=== PATIENT | female | born 1985 | race Caucasian/White ===

== ENCOUNTER 2023-06-22 00:43 | Inpatient (IN) | payer SELFPAY ==
[2023-06-22 01:42] VITALS: BMI 39.1
[2023-06-22] MEDS ORDERED: Acetaminophen 650 MG Suppository PR PRN (02:43)
[2023-06-22] MEDS ORDERED: Ondansetron PF 4 MG/2 ML Vial IVP PRN (02:43)
[2023-06-22] MEDS ORDERED: Ondansetron ODT 4 MG TAB PO PRN (02:43)
[2023-06-22] MEDS ORDERED: Fentanyl 100 MCG/2 ML VIAL SLOW IVP PRN (03:47)
[2023-06-22] MEDS ORDERED: Sodium Chloride 0.9% 1,000 ML IV SCH (04:00)
[2023-06-22] MEDS ORDERED: Morphine 4 MG/ML VIAL SLOW IVP SCH (04:00)
[2023-06-22] MEDS ORDERED: Pantoprazole 40 MG VIAL IVP SCH (04:15)
[2023-06-22] MEDS: Sodium Chloride 0.9% 1,000 ML IV SCH ×3 (04:19→18:39)
[2023-06-22 04:28] LABS: #Basophils 0.1 thou/uL (0.0-0.2); #Eosinphils 0.1 thou/uL (0.0-0.7); #Monocytes 1.4 thou/uL (0.11-0.59); #Neutrophils 13.1 thou/uL (1.40-6.50); %Basophils 0.4 % (0.0-1.0); %Eosinophils 0.4 % (0.0-10.0); %Lymphocytes 10.2 % (21.0-51.0); %Monocytes 8.1 % (0.0-10.0); %Neutrophils 78.9 % (42.0-75.0); Hematocrit 33.8 % (36.0-47.0); Mean Corpuscular HGB CONC 35.5 g/dL (32.0-36.0); Mean Platelet Volume 9.1 fL (7.4-10.4); Platelet Count 249 10x3/uL (130-400); RBC Distribution Width 16.7 % (11.5-14.5); Red Blood Cell (RBC) Count 3.16 mill/uL (4.20-5.40); White Blood Cell (WBC) Count 16.6 10x3/uL (4.8-10.8)
[2023-06-22 04:53] LABS: ALT (SGPT) 48 U/L (8-55); AST (SGOT) 151 U/L (5-34); Albumin 2.3 g/dL (3.5-5.0); Alkaline Phosphatase 194 U/L (40-110); Anion Gap 15 mmol/L (10-20); BUN (Urea Nitrogen) 5 mg/dL (7.0-18.7); Calc. Creatinine Clearance 290 mL/min (70-130); Calcium 8.2 mg/dL (7.8-10.44); Carbon Dioxide 24 mmol/L (22-29); Chloride 93 mmol/L (98-107); Estimated GFR 126; Globulin 4.6 g/dL (2.4-3.5); Glucose 114 mg/dL (70-105); Potassium 3.7 mmol/L (3.5-5.1); Protein, Total 6.9 g/dL (6.0-8.3); Sodium 128 mmol/L (136-145)
[2023-06-22] MEDS ORDERED: Electrolyte Replacement Protocol 1 EACH FS SCH (06:45)
[2023-06-22 08:21] LABS: INR-International Normal Ratio 1.5; PTT 39.6 sec (22.9-36.1); Prothrombin Time 19.1 sec (12.0-14.7)
[2023-06-22 08:29] LABS: Bilirubin, Total 23.1 mg/dL (0.2-1.2)
[2023-06-22] MEDS ORDERED: Magnesium 2 GM/50 ML(in water) 2 GM in Premix Bag 1 BAG IVPB SCH (08:45)
[2023-06-22 08:51] LABS: HBCM Index 0.16 S/CO (0-0.79); HBSAg Index 0.32 S/CO (0-0.99); Hep A IgM AB Non-Reactive S/CO (NonReactive); Hep A IgM S/CO 0.39 S/CO (0-0.79); Hep B Surf Ag Non-Reactive S/CO (NonReactive); Hep C IgG Ab Non-Reactive S/CO (NonReactive); Hep C Index 0.17 S/CO (0-0.79); Hepatitis B Core IgM Abs Non-Reactive S/CO (NonReactive)
[2023-06-22 08:52] LABS: Bilirubin, Direct 16.3 mg/dL (0.1-0.3)
[2023-06-22] MEDS: Carvedilol 6.25 MG TAB PO SCH ×2 (09:14→17:58)
[2023-06-22] MEDS ORDERED: fentaNYL 50 mcg/mL 1 mL Vial SLOW IVP PRN (09:30)
[2023-06-22] MEDS: fentaNYL 50 mcg/mL 1 mL Vial SLOW IVP PRN ×4 (09:42→22:18)
[2023-06-22] MEDS: Mometasone 100 MCG HFA INHALER (RT USE) INH SCH (18:45)
[2023-06-22] MEDS: Montelukast Sodium 10 mg Tablet PO SCH (21:25)
[2023-06-22] MEDS: Pantoprazole 40 MG VIAL IVP SCH (21:28)
[2023-06-23] MEDS: Sodium Chloride 0.9% 1,000 ML IV SCH ×3 (01:05→15:18)
[2023-06-23] MEDS: fentaNYL 50 mcg/mL 1 mL Vial SLOW IVP PRN ×4 (03:46→16:45)
[2023-06-23 06:52] LABS: #Basophils 0.1 thou/uL (0.0-0.2); #Eosinphils 0.1 thou/uL (0.0-0.7); #Neutrophils 10.5 thou/uL (1.40-6.50); %Basophils 0.5 % (0.0-1.0); %Eosinophils 0.8 % (0.0-10.0); %Lymphocytes 11.2 % (21.0-51.0); %Monocytes 7.2 % (0.0-10.0); %Neutrophils 79.2 % (42.0-75.0); Hematocrit 31.5 % (36.0-47.0); Hemoglobin 11.2 g/dL (12.0-16.0); Mean Corpuscular HGB CONC 35.6 g/dL (32.0-36.0); Mean Corpuscular Hemoglobin 38.6 pg (27.0-31.0); Mean Corpuscular Volume 108.6 fl (78.0-98.0); Mean Platelet Volume 9.6 fL (7.4-10.4); Platelet Count 208 10x3/uL (130-400); RBC Distribution Width 16.7 % (11.5-14.5); White Blood Cell (WBC) Count 13.3 10x3/uL (4.8-10.8)
[2023-06-23 07:01] LABS: INR-International Normal Ratio 1.7; Prothrombin Time 20.9 sec (12.0-14.7)
[2023-06-23 07:20] LABS: ALT (SGPT) 43 U/L (8-55); AST (SGOT) 130 U/L (5-34); Alkaline Phosphatase 174 U/L (40-110); Anion Gap 13 mmol/L (10-20); BUN (Urea Nitrogen) 6 mg/dL (7.0-18.7); Bilirubin, Total 22.2 mg/dL (0.2-1.2); Calc. Creatinine Clearance 253 mL/min (70-130); Calcium 7.4 mg/dL (7.8-10.44); Carbon Dioxide 23 mmol/L (22-29); Chloride 95 mmol/L (98-107); Estimated GFR 122; Globulin 3.5 g/dL (2.4-3.5); Glucose 87 mg/dL (70-105); Potassium 2.8 mmol/L (3.5-5.1); Protein, Total 5.5 g/dL (6.0-8.3); Sodium 128 mmol/L (136-145)
[2023-06-23] MEDS: Carvedilol 6.25 MG TAB PO SCH ×2 (08:38→16:46)
[2023-06-23] MEDS: prednisoLONE 10 MG ODT TAB PO SCH (08:39)
[2023-06-23] MEDS: Potassium Chloride 20 MEQ TAB PO SCH ×4 (08:39→22:42)
[2023-06-23] MEDS: Mometasone 100 MCG HFA INHALER (RT USE) INH SCH ×2 (10:05→18:29)
[2023-06-23] MEDS: Montelukast Sodium 10 mg Tablet PO SCH (22:42)
[2023-06-23] MEDS: Pantoprazole 40 MG VIAL IVP SCH (22:43)
[2023-06-23] MEDS: Polyethylene Glycol 3350 17 GM Packet PO SCH (22:45)
[2023-06-24] MEDS: Sodium Chloride 0.9% 1,000 ML IV SCH ×2 (00:35→08:39)
[2023-06-24] MEDS: prednisoLONE 10 MG ODT TAB PO SCH (08:39)
[2023-06-24] MEDS: Carvedilol 6.25 MG TAB PO SCH ×2 (08:39→16:40)
[2023-06-24] MEDS: Acetaminophen 325 MG TAB PO PRN (08:40)
[2023-06-24] MEDS: Polyethylene Glycol 3350 17 GM Packet PO SCH ×2 (08:46→22:45)
[2023-06-24] MEDS: Mometasone 100 MCG HFA INHALER (RT USE) INH SCH ×2 (10:30→18:59)
[2023-06-24 11:57] LABS: #Basophils 0.1 thou/uL (0.0-0.2); #Monocytes 0.9 thou/uL (0.11-0.59); #Neutrophils 13.3 thou/uL (1.40-6.50); %Basophils 0.3 % (0.0-1.0); %Eosinophils 0.2 % (0.0-10.0); %Lymphocytes 6.6 % (21.0-51.0); %Monocytes 5.7 % (0.0-10.0); %Neutrophils 85.3 % (42.0-75.0); Hematocrit 33.7 % (36.0-47.0); Hemoglobin 11.6 g/dL (12.0-16.0); Mean Corpuscular HGB CONC 34.4 g/dL (32.0-36.0); Mean Corpuscular Hemoglobin 37.9 pg (27.0-31.0); Mean Corpuscular Volume 110.1 fl (78.0-98.0); Mean Platelet Volume 9.3 fL (7.4-10.4); Platelet Count 252 10x3/uL (130-400); RBC Distribution Width 16.7 % (11.5-14.5); Red Blood Cell (RBC) Count 3.06 mill/uL (4.20-5.40); White Blood Cell (WBC) Count 15.6 10x3/uL (4.8-10.8)
[2023-06-24 12:09] LABS: INR-International Normal Ratio 1.8; Prothrombin Time 22.1 sec (12.0-14.7)
[2023-06-24 12:13] LABS: ALT (SGPT) 49 U/L (8-55); AST (SGOT) 126 U/L (5-34); Alkaline Phosphatase 185 U/L (40-110); Anion Gap 9 mmol/L (10-20); BUN (Urea Nitrogen) 7 mg/dL (7.0-18.7); Calc. Creatinine Clearance 214 mL/min (70-130); Calcium 7.9 mg/dL (7.8-10.44); Carbon Dioxide 23 mmol/L (22-29); Chloride 100 mmol/L (98-107); Estimated GFR 117; Globulin 3.8 g/dL (2.4-3.5); Glucose 125 mg/dL (70-105); Potassium 3.7 mmol/L (3.5-5.1); Protein, Total 5.8 g/dL (6.0-8.3); Sodium 128 mmol/L (136-145)
[2023-06-24] MEDS: Montelukast Sodium 10 mg Tablet PO SCH (23:38)
[2023-06-24] MEDS: Pantoprazole 40 MG VIAL IVP SCH (23:41)
[2023-06-25] MEDS: Sodium Chloride 0.9% 1,000 ML IV SCH ×2 (02:20→09:02)
[2023-06-25 06:23] LABS: #Basophils 0.1 thou/uL (0.0-0.2); #Eosinphils 0.1 thou/uL (0.0-0.7); #Monocytes 1.4 thou/uL (0.11-0.59); #Neutrophils 13.2 thou/uL (1.40-6.50); %Basophils 0.3 % (0.0-1.0); %Eosinophils 0.5 % (0.0-10.0); %Lymphocytes 9.9 % (21.0-51.0); %Monocytes 8.1 % (0.0-10.0); Hematocrit 32.9 % (36.0-47.0); Hemoglobin 11.3 g/dL (12.0-16.0); Mean Corpuscular HGB CONC 34.3 g/dL (32.0-36.0); Mean Corpuscular Hemoglobin 38.4 pg (27.0-31.0); Mean Corpuscular Volume 111.9 fl (78.0-98.0); Mean Platelet Volume 9.2 fL (7.4-10.4); Platelet Count 230 10x3/uL (130-400); RBC Distribution Width 17.1 % (11.5-14.5); Red Blood Cell (RBC) Count 2.94 mill/uL (4.20-5.40); White Blood Cell (WBC) Count 16.7 10x3/uL (4.8-10.8)
[2023-06-25] MEDS: Mometasone 100 MCG HFA INHALER (RT USE) INH SCH ×2 (06:40→18:32)
[2023-06-25 06:52] LABS: Anisocytosis SLIGHT = 6-15 cells HPF (0-5); Burr Cells SLIGHT = 2-5 cells HPF (0-1); CellaVision Operator ID lab.abc; Macrocytosis SLIGHT = 6-15 cells HPF (0-5); Platelet Adequacy Comment Platelets Normal; Polychromasia SLIGHT = 2-3 cells HPF (0-2)
[2023-06-25 07:17] LABS: ALT (SGPT) 50 U/L (8-55); AST (SGOT) 121 U/L (5-34); Alkaline Phosphatase 193 U/L (40-110); Anion Gap 13 mmol/L (10-20); BUN (Urea Nitrogen) 7 mg/dL (7.0-18.7); Bilirubin, Total 21.9 mg/dL (0.2-1.2); Calc. Creatinine Clearance 225 mL/min (70-130); Calcium 7.5 mg/dL (7.8-10.44); Carbon Dioxide 19 mmol/L (22-29); Chloride 102 mmol/L (98-107); Estimated GFR 118; Globulin 3.8 g/dL (2.4-3.5); Glucose 87 mg/dL (70-105); Magnesium 2.1 mg/dL (1.6-2.6); Potassium 4.1 mmol/L (3.5-5.1); Protein, Total 5.8 g/dL (6.0-8.3); Sodium 130 mmol/L (136-145)
[2023-06-25] MEDS: Carvedilol 6.25 MG TAB PO SCH ×2 (09:02→17:31)
[2023-06-25] MEDS: Acetaminophen 325 MG TAB PO PRN ×3 (09:04→16:51)
[2023-06-25] MEDS: prednisoLONE 10 MG ODT TAB PO SCH (09:05)
[2023-06-25] MEDS: Polyethylene Glycol 3350 17 GM Packet PO SCH (09:06)
[2023-06-25 14:24] LABS: INR-International Normal Ratio 1.8; Prothrombin Time 21.7 sec (12.0-14.7)
[2023-06-25] MEDS: HYDROcodone/Acetaminophen 5/325 mg Tablet PO PRN (17:32)
[2023-06-25] MEDS: Montelukast Sodium 10 mg Tablet PO SCH (20:34)
[2023-06-25] MEDS: Gabapentin 300 MG CAP PO SCH (20:34)
[2023-06-25] MEDS: Pantoprazole 40 MG VIAL IVP SCH (20:36)
[2023-06-26] MEDS: HYDROcodone/Acetaminophen 5/325 mg Tablet PO PRN ×3 (01:50→20:14)
[2023-06-26 05:48] LABS: #Basophils 0.1 thou/uL (0.0-0.2); #Monocytes 1.3 thou/uL (0.11-0.59); #Neutrophils 15.3 thou/uL (1.40-6.50); %Basophils 0.4 % (0.0-1.0); %Eosinophils 0.2 % (0.0-10.0); %Lymphocytes 8.1 % (21.0-51.0); Hematocrit 35.8 % (36.0-47.0); Hemoglobin 12.4 g/dL (12.0-16.0); Mean Corpuscular HGB CONC 34.6 g/dL (32.0-36.0); Mean Corpuscular Hemoglobin 38.5 pg (27.0-31.0); Mean Platelet Volume 9.1 fL (7.4-10.4); Platelet Count 255 10x3/uL (130-400); RBC Distribution Width 17.2 % (11.5-14.5); Red Blood Cell (RBC) Count 3.22 mill/uL (4.20-5.40); White Blood Cell (WBC) Count 18.9 10x3/uL (4.8-10.8)
[2023-06-26 05:51] LABS: Mean Corpuscular Volume 111.2 fl (78.0-98.0)
[2023-06-26 06:12] LABS: ALT (SGPT) 58 U/L (8-55); AST (SGOT) 125 U/L (5-34); Albumin 2.1 g/dL (3.5-5.0); Alkaline Phosphatase 216 U/L (40-110); Anion Gap 11 mmol/L (10-20); BUN (Urea Nitrogen) 10 mg/dL (7.0-18.7); Bilirubin, Total 23.6 mg/dL (0.2-1.2); Calc. Creatinine Clearance 205 mL/min (70-130); Carbon Dioxide 21 mmol/L (22-29); Chloride 100 mmol/L (98-107); Estimated GFR 116; Globulin 3.8 g/dL (2.4-3.5); Glucose 91 mg/dL (70-105); Magnesium 2.3 mg/dL (1.6-2.6); Potassium 4.4 mmol/L (3.5-5.1); Protein, Total 5.9 g/dL (6.0-8.3); Sodium 128 mmol/L (136-145)
[2023-06-26] MEDS: Acetaminophen 325 MG TAB PO PRN (06:26)
[2023-06-26] MEDS ORDERED: Furosemide 40 MG/4 ML VIAL SLOW IVP SCH (09:00)
[2023-06-26] MEDS: Gabapentin 300 MG CAP PO SCH ×3 (09:10→20:12)
[2023-06-26] MEDS: Polyethylene Glycol 3350 17 GM Packet PO SCH (09:10)
[2023-06-26] MEDS: Carvedilol 6.25 MG TAB PO SCH (09:12)
[2023-06-26] MEDS: prednisoLONE 10 MG ODT TAB PO SCH (09:13)
[2023-06-26] MEDS: Mometasone 100 MCG HFA INHALER (RT USE) INH SCH ×2 (10:39→18:21)
[2023-06-26] MEDS: Montelukast Sodium 10 mg Tablet PO SCH (20:12)
[2023-06-26] MEDS: Pantoprazole 40 MG VIAL IVP SCH (20:12)
[2023-06-26] MEDS: Carvedilol 3.125 MG TAB PO SCH (20:14)
[2023-06-27] MEDS: HYDROcodone/Acetaminophen 5/325 mg Tablet PO PRN ×3 (03:15→21:14)
[2023-06-27 06:05] LABS: #Basophils 0.1 thou/uL (0.0-0.2); #Monocytes 1.4 thou/uL (0.11-0.59); #Neutrophils 13.5 thou/uL (1.40-6.50); %Basophils 0.4 % (0.0-1.0); %Eosinophils 0.2 % (0.0-10.0); %Lymphocytes 8.9 % (21.0-51.0); %Monocytes 8.4 % (0.0-10.0); %Neutrophils 78.9 % (42.0-75.0); Hematocrit 32.6 % (36.0-47.0); Hemoglobin 11.4 g/dL (12.0-16.0); Mean Corpuscular Hemoglobin 38.8 pg (27.0-31.0); Mean Corpuscular Volume 110.9 fl (78.0-98.0); Mean Platelet Volume 9.2 fL (7.4-10.4); Platelet Count 212 10x3/uL (130-400); RBC Distribution Width 17.5 % (11.5-14.5); Red Blood Cell (RBC) Count 2.94 mill/uL (4.20-5.40); White Blood Cell (WBC) Count 17.1 10x3/uL (4.8-10.8)
[2023-06-27 06:25] LABS: INR-International Normal Ratio 1.9; Prothrombin Time 22.3 sec (12.0-14.7)
[2023-06-27 06:28] LABS: ALT (SGPT) 56 U/L (8-55); AST (SGOT) 119 U/L (5-34); Alkaline Phosphatase 228 U/L (40-110); Anion Gap 13 mmol/L (10-20); BUN (Urea Nitrogen) 14 mg/dL (7.0-18.7); Bilirubin, Total 21.8 mg/dL (0.2-1.2); Calc. Creatinine Clearance 176 mL/min (70-130); Calcium 7.9 mg/dL (7.8-10.44); Carbon Dioxide 21 mmol/L (22-29); Chloride 96 mmol/L (98-107); Estimated GFR 99; Globulin 3.7 g/dL (2.4-3.5); Glucose 90 mg/dL (70-105); Potassium 4.4 mmol/L (3.5-5.1); Protein, Total 5.7 g/dL (6.0-8.3); Sodium 126 mmol/L (136-145)
[2023-06-27] MEDS: Mometasone 100 MCG HFA INHALER (RT USE) INH SCH ×2 (06:36→18:42)
[2023-06-27] MEDS: Furosemide 40 MG TAB PO SCH (08:16)
[2023-06-27] MEDS: Gabapentin 300 MG CAP PO SCH ×3 (08:16→21:15)
[2023-06-27] MEDS: prednisoLONE 10 MG ODT TAB PO SCH (08:17)
[2023-06-27] MEDS: Polyethylene Glycol 3350 17 GM Packet PO SCH (08:17)
[2023-06-27] MEDS: Carvedilol 3.125 MG TAB PO SCH ×2 (08:17→16:37)
[2023-06-27] MEDS: Acetaminophen 325 MG TAB PO PRN (16:41)
[2023-06-27] MEDS: Montelukast Sodium 10 mg Tablet PO SCH (21:15)
[2023-06-27] MEDS: Pantoprazole 40 MG VIAL IVP SCH (21:16)
[2023-06-28] MEDS: Acetaminophen 325 MG TAB PO PRN ×2 (01:28→08:51)
[2023-06-28] MEDS: HYDROcodone/Acetaminophen 5/325 mg Tablet PO PRN ×2 (06:47→14:40)
[2023-06-28 07:42] LABS: ALT (SGPT) 59 U/L (8-55); AST (SGOT) 113 U/L (5-34); Albumin 1.9 g/dL (3.5-5.0); Alkaline Phosphatase 225 U/L (40-110); Anion Gap 12 mmol/L (10-20); BUN (Urea Nitrogen) 16 mg/dL (7.0-18.7); Bilirubin, Total 21.6 mg/dL (0.2-1.2); Calc. Creatinine Clearance 196 mL/min (70-130); Calcium 8.1 mg/dL (7.8-10.44); Carbon Dioxide 24 mmol/L (22-29); Chloride 96 mmol/L (98-107); Estimated GFR 113; Globulin 3.7 g/dL (2.4-3.5); Glucose 98 mg/dL (70-105); Potassium 4.5 mmol/L (3.5-5.1); Protein, Total 5.6 g/dL (6.0-8.3); Sodium 127 mmol/L (136-145)
[2023-06-28] MEDS: Gabapentin 300 MG CAP PO SCH ×3 (08:50→21:44)
[2023-06-28] MEDS: prednisoLONE 10 MG ODT TAB PO SCH (08:50)
[2023-06-28] MEDS: Polyethylene Glycol 3350 17 GM Packet PO SCH (08:51)
[2023-06-28] MEDS: Furosemide 40 MG TAB PO SCH (08:51)
[2023-06-28] MEDS: Carvedilol 3.125 MG TAB PO SCH ×2 (08:51→17:34)
[2023-06-28] MEDS: Albumin 25% 25 GM/100 ML BOT IVPB SCH ×2 (10:37→15:47)
[2023-06-28] MEDS: Mometasone 100 MCG HFA INHALER (RT USE) INH SCH ×2 (10:43→18:53)
[2023-06-28] MEDS ORDERED: Furosemide 20 MG/2 ML VIAL SLOW IVP SCH (14:00)
[2023-06-28] MEDS ORDERED: Furosemide 40 MG/4 ML VIAL SLOW IVP SCH (14:00)
[2023-06-28] MEDS: Montelukast Sodium 10 mg Tablet PO SCH (21:45)
[2023-06-28] MEDS: Pantoprazole 40 MG VIAL IVP SCH (21:46)
[2023-06-29] MEDS: Acetaminophen 325 MG TAB PO PRN (04:02)
[2023-06-29 07:25] LABS: ALT (SGPT) 52 U/L (8-55); AST (SGOT) 100 U/L (5-34); Albumin 2.3 g/dL (3.5-5.0); Alkaline Phosphatase 196 U/L (40-110); Anion Gap 10 mmol/L (10-20); BUN (Urea Nitrogen) 15 mg/dL (7.0-18.7); Bilirubin, Total 21.2 mg/dL (0.2-1.2); Calc. Creatinine Clearance 221 mL/min (70-130); Calcium 8.1 mg/dL (7.8-10.44); Carbon Dioxide 28 mmol/L (22-29); Chloride 97 mmol/L (98-107); Estimated GFR 118; Globulin 3.2 g/dL (2.4-3.5); Glucose 74 mg/dL (70-105); Potassium 3.7 mmol/L (3.5-5.1); Protein, Total 5.5 g/dL (6.0-8.3); Sodium 131 mmol/L (136-145)
[2023-06-29 08:08] VITALS: BP 117/79; TEMP 96.9
[2023-06-29] MEDS: HYDROcodone/Acetaminophen 5/325 mg Tablet PO PRN (08:33)
[2023-06-29] MEDS: Gabapentin 300 MG CAP PO SCH (08:34)
[2023-06-29] MEDS: Polyethylene Glycol 3350 17 GM Packet PO SCH (08:34)
[2023-06-29] MEDS: Carvedilol 3.125 MG TAB PO SCH (08:34)
[2023-06-29] MEDS: Furosemide 40 MG TAB PO SCH (08:34)
[2023-06-29] MEDS: prednisoLONE 10 MG ODT TAB PO SCH (08:34)
[2023-06-29] MEDS: Mometasone 100 MCG HFA INHALER (RT USE) INH SCH (08:45)
== END 2023-06-29 14:10 | disposition home or self-care (01) | DRG 432 ==
LOC: T4-A 01:26
PROVIDERS: ADMIT Student in an Organized Health Care Education/Training Program; ATTEND Family Medicine
PROC: 30233J1 Transfusion of Nonautologous Serum Albumin into Peripheral Vein, Percutaneous Approach (ICD-10-PCS; principal; 2023-06-28)
DX: K70.11 Alcoholic hepatitis with ascites (principal); K85.20 Alcohol induced acute pancreatitis without necrosis or infection; E87.1 Hypo-osmolality and hyponatremia; K76.6 Portal hypertension; I10 Essential (primary) hypertension; K21.9 Gastro-esophageal reflux disease without esophagitis; J45.909 Unspecified asthma, uncomplicated; E87.6 Hypokalemia; R79.89 Other specified abnormal findings of blood chemistry; E66.9 Obesity, unspecified; I49.3 Ventricular premature depolarization; K72.90 Hepatic failure, unspecified without coma; Z91.013 Allergy to seafood; Z91.09 Other allergy status, other than to drugs and biological substances; Z79.51 Long term (current) use of inhaled steroids; Z79.899 Other long term (current) drug therapy; Z86.711 Personal history of pulmonary embolism; Z90.49 Acquired absence of other specified parts of digestive tract; Z98.51 Tubal ligation status; Z68.39 Body mass index [BMI] 39.0-39.9, adult
CPT/HCPCS: 36415; 36416; 76705; 80053; 80074; 82247; 83735; 85025; 85610; 85730; 94664; C9113; J1650; J1940; J2270; J2405; J3010; J3475; J7050; P9047

== ENCOUNTER 2023-07-03 08:34 | Inpatient (IN) | payer MEDICAID, SELFPAY ==
[2023-07-03 09:22] LABS: #Basophils 0.1 thou/uL (0.0-0.2); #Eosinphils 0.1 thou/uL (0.0-0.7); #Monocytes 1.7 thou/uL (0.11-0.59); #Neutrophils 20.3 thou/uL (1.40-6.50); %Basophils 0.6 % (0.0-1.0); %Eosinophils 0.3 % (0.0-10.0); %Lymphocytes 5.8 % (21.0-51.0); %Neutrophils 83.1 % (42.0-75.0); Hematocrit 33.3 % (36.0-47.0); Hemoglobin 11.9 g/dL (12.0-16.0); Mean Corpuscular HGB CONC 35.7 g/dL (32.0-36.0); Mean Corpuscular Hemoglobin 39.8 pg (27.0-31.0); Mean Corpuscular Volume 111.4 fl (78.0-98.0); Mean Platelet Volume 9.4 fL (7.4-10.4); Platelet Count 184 10x3/uL (130-400); RBC Distribution Width 18.9 % (11.5-14.5); Red Blood Cell (RBC) Count 2.99 mill/uL (4.20-5.40); White Blood Cell (WBC) Count 24.4 10x3/uL (4.8-10.8)
[2023-07-03 09:45] LABS: ALT (SGPT) 75 U/L (8-55); AST (SGOT) 145 U/L (5-34); Albumin 2.4 g/dL (3.5-5.0); Alkaline Phosphatase 242 U/L (40-110); Anion Gap 10 mmol/L (10-20); BUN (Urea Nitrogen) 19 mg/dL (7.0-18.7); Bilirubin, Total 22.3 mg/dL (0.2-1.2); Calc. Creatinine Clearance 0 mL/min (70-130); Calcium 8.4 mg/dL (7.8-10.44); Carbon Dioxide 21 mmol/L (22-29); Chloride 100 mmol/L (98-107); Estimated GFR 106; Globulin 3.3 g/dL (2.4-3.5); Glucose 134 mg/dL (70-105); Lipase 51 U/L (8-78); Potassium 4.7 mmol/L (3.5-5.1); Protein, Total 5.7 g/dL (6.0-8.3); Sodium 126 mmol/L (136-145)
[2023-07-03 09:47] LABS: Troponin I Less than 0.010 ng/mL (< 0.028)
[2023-07-03 09:48] LABS: CellaVision Operator ID LAB.GE; Platelet Adequacy Comment Platelets Normal; Polychromasia SLIGHT = 2-3 cells HPF (0-2)
[2023-07-03] MEDS ORDERED: Morphine 4 MG/ML VIAL ONE (10:02)
[2023-07-03] MEDS ORDERED: Ondansetron PF 4 MG/2 ML Vial ONE (10:03)
[2023-07-03 10:14] LABS: BHCG - Serum Negative (NEGATIVE); Pregs Control Background? CLEAR/WHITE (CLR/WHITE); Pregs Control Bar Appear? YES (CONTROL BAR)
[2023-07-03] MEDS ORDERED: Vancomycin 1 GM/200 ML (FROZEN) BAG ONE (10:14)
[2023-07-03] MEDS ORDERED: Piperacillin/Tazobactam 4.5 GM VIAL ONE (10:15)
[2023-07-03 10:29] LABS: INR-International Normal Ratio 1.7; Prothrombin Time 20.8 sec (12.0-14.7)
[2023-07-03 10:30] LABS: PTT 38.7 sec (22.9-36.1)
[2023-07-03] MEDS ORDERED: Iopamidol-370 76% 500 ML MDV (1 ML CHARGE) ONE (11:04)
[2023-07-03] MEDS ORDERED: Ondansetron PF 4 MG/2 ML Vial IVP PRN (12:46)
[2023-07-03 14:36] LABS: Bacteria/HPF 4+ HPF (None Seen); Bilirubin 4+ (Negative); Blood, Urine Negative (Negative); CAUTI Indications for Culture Pelvic or flank pain; Clarity Turbid (Clear); Glucose, Urine (Dipstick) Normal (Negative); Ketone, Urine Negative (Negative); Leukocyte Negative Leu/uL (Negative); Nitrite 2+ (Negative); Protein, Urine (Dipstick) 10 mg/dL (Neg-Trace); RBC/HPF 0-3 HPF (0-3); Specific Gravity, Urine 1.048 (1.002-1.036); Squamous Epithelial 0-3 HPF (0-3)
[2023-07-03] MEDS: Piperacillin/Tazobactam 3.375 GM in Sodium Chloride 0.9% 100 ML IVPB SCH ×2 (14:48→20:58)
[2023-07-03 14:55] LABS: Urine Culture Reflex No No
[2023-07-03 15:58] LABS: Amphetamine Not Detected (NotDetected); Barbiturates Screen Not Detected (NotDetected); Benzodiazepine Screen Not Detected (NotDetected); Cocaine Metabolite Screen Not Detected (NotDetected); Methadone Not Detected (NotDetected); Methamphetamine Not Detected (NotDetected); Opiate Screen Detected (NotDetected); Oxycodone Screen Not Detected (NotDetected); Phencyclidine (PCP) Not Detected (NotDetected); THC/Cannabinoid Screen Detected (NotDetected); Tricyclic Screen Not Detected (NotDetected)
[2023-07-03] MEDS: Morphine 2 MG/ML VIAL SLOW IVP PRN ×2 (16:20→20:53)
[2023-07-03] MEDS ORDERED: Albuterol 200 PUFF (6.7GM INHALER) INH PRN (17:00)
[2023-07-03] MEDS ORDERED: Piperacillin/Tazobactam 4.5 GM in Sodium Chloride 0.9% 100 ML IVPB SCH (18:00)
[2023-07-03] MEDS: Gabapentin 300 MG CAP PO SCH (20:54)
[2023-07-04] MEDS: Morphine 2 MG/ML VIAL SLOW IVP PRN ×3 (00:40→11:49)
[2023-07-04] MEDS: Piperacillin/Tazobactam 3.375 GM in Sodium Chloride 0.9% 100 ML IVPB SCH ×3 (04:56→21:00)
[2023-07-04 07:23] LABS: Hematocrit 31.3 % (36.0-47.0); Hemoglobin 10.7 g/dL (12.0-16.0); Mean Corpuscular HGB CONC 34.2 g/dL (32.0-36.0); Mean Corpuscular Hemoglobin 39.6 pg (27.0-31.0); Mean Platelet Volume 9.4 fL (7.4-10.4); Platelet Count 159 10x3/uL (130-400); RBC Distribution Width 18.8 % (11.5-14.5); White Blood Cell (WBC) Count 21.2 10x3/uL (4.8-10.8)
[2023-07-04 07:39] LABS: Delete Auto Diff?? YES; Manual Diff?? YES; Mean Corpuscular Volume 115.9 fl (78.0-98.0)
[2023-07-04 07:45] LABS: ALT (SGPT) 68 U/L (8-55); AST (SGOT) 127 U/L (5-34); Albumin 2.1 g/dL (3.5-5.0); Alkaline Phosphatase 208 U/L (40-110); Anion Gap 13 mmol/L (10-20); BUN (Urea Nitrogen) 22 mg/dL (7.0-18.7); Bilirubin, Total 18.9 mg/dL (0.2-1.2); Calc. Creatinine Clearance 262 mL/min (70-130); Calcium 7.9 mg/dL (7.8-10.44); Carbon Dioxide 20 mmol/L (22-29); Chloride 100 mmol/L (98-107); Estimated GFR 117; Glucose 102 mg/dL (70-105); Potassium 4.5 mmol/L (3.5-5.1); Protein, Total 5.1 g/dL (6.0-8.3); Sodium 128 mmol/L (136-145)
[2023-07-04 07:47] LABS: INR-International Normal Ratio 1.6
[2023-07-04 07:55] LABS: Hemoglobin A1c 4.2 % (4.0-6.0)
[2023-07-04 08:23] LABS: Band 26 % (5-11); CellaVision Operator ID LAB.GE; Lymphocytes 4 % (21-51); Macrocytosis MODERATE=16-30 cells HPF (0-5); Monocytes 10 % (0-10); Neutrophil 61 % (42-75); Platelet Adequacy Comment Platelets Normal; Polychromasia SLIGHT = 2-3 cells HPF (0-2); Total Cell Count 102
[2023-07-04] MEDS ORDERED: Lidocaine 1% PF 5 ML VIAL ONE (10:20)
[2023-07-04] MEDS: Gabapentin 300 MG CAP PO SCH ×3 (11:47→20:58)
[2023-07-04] MEDS: Furosemide 40 MG/4 ML VIAL SLOW IVP SCH (11:47)
[2023-07-04] MEDS: prednisoLONE 10 MG ODT TAB PO SCH (11:48)
[2023-07-04 13:24] LABS: RBC Count-Automated (BF) 138 /cu.mm; WBC/Nucleated-Auto (BF) 53 /cu.mm
[2023-07-04 13:27] LABS: BF Color Yellow; Body Fluid Source Ascites Body Fluid; Clarity Clear (Clear); Tube # EDTA
[2023-07-04 13:58] LABS: BF Segmented Neutrophils 5 %; Cell Count Non Hematic 86 %; Lymphocytes 9 %
[2023-07-04] MEDS ORDERED: Cyclobenzaprine 10 MG TAB PO SCH (16:30)
[2023-07-04] MEDS ORDERED: Senokot S 8.6-50 MG TAB PO SCH (17:00)
[2023-07-04] MEDS: HYDROcodone/Acetaminophen 5/325 mg Tablet PO PRN (17:25)
[2023-07-04] MEDS: Carvedilol 6.25 MG TAB PO SCH (20:57)
[2023-07-04] MEDS: Montelukast Sodium 10 mg Tablet PO SCH (20:58)
[2023-07-04] MEDS: Cyclobenzaprine 10 MG TAB PO PRN (20:58)
[2023-07-05] MEDS: HYDROcodone/Acetaminophen 5/325 mg Tablet PO PRN ×4 (00:33→18:53)
[2023-07-05 05:30] LABS: #Eosinphils 0.1 thou/uL (0.0-0.7); #Monocytes 1.6 thou/uL (0.11-0.59); #Neutrophils 15.4 thou/uL (1.40-6.50); %Basophils 0.2 % (0.0-1.0); %Eosinophils 0.3 % (0.0-10.0); %Lymphocytes 7.2 % (21.0-51.0); %Monocytes 8.6 % (0.0-10.0); %Neutrophils 81.5 % (42.0-75.0); Hematocrit 29.7 % (36.0-47.0); Hemoglobin 10.4 g/dL (12.0-16.0); Mean Corpuscular Hemoglobin 39.5 pg (27.0-31.0); Mean Platelet Volume 9.5 fL (7.4-10.4); Platelet Count 146 10x3/uL (130-400); RBC Distribution Width 18.6 % (11.5-14.5); Red Blood Cell (RBC) Count 2.63 mill/uL (4.20-5.40); White Blood Cell (WBC) Count 18.8 10x3/uL (4.8-10.8)
[2023-07-05 05:34] LABS: Mean Corpuscular Volume 112.9 fl (78.0-98.0)
[2023-07-05 05:56] LABS: ALT (SGPT) 64 U/L (8-55); AST (SGOT) 115 U/L (5-34); Albumin 1.9 g/dL (3.5-5.0); Alkaline Phosphatase 229 U/L (40-110); Anion Gap 12 mmol/L (10-20); BUN (Urea Nitrogen) 23 mg/dL (7.0-18.7); Bilirubin, Total 17.6 mg/dL (0.2-1.2); Calc. Creatinine Clearance 255 mL/min (70-130); Carbon Dioxide 22 mmol/L (22-29); Chloride 97 mmol/L (98-107); Estimated GFR 116; Glucose 103 mg/dL (70-105); Potassium 4.6 mmol/L (3.5-5.1); Protein, Total 4.9 g/dL (6.0-8.3); Sodium 126 mmol/L (136-145)
[2023-07-05] MEDS: Piperacillin/Tazobactam 3.375 GM in Sodium Chloride 0.9% 100 ML IVPB SCH ×3 (06:08→22:04)
[2023-07-05] MEDS: Carvedilol 6.25 MG TAB PO SCH ×2 (10:10→20:28)
[2023-07-05] MEDS: Gabapentin 300 MG CAP PO SCH ×3 (10:11→20:29)
[2023-07-05] MEDS: Senokot S 8.6-50 MG TAB PO SCH ×2 (10:11→20:29)
[2023-07-05] MEDS: Furosemide 40 MG/4 ML VIAL SLOW IVP SCH (10:11)
[2023-07-05] MEDS: prednisoLONE 10 MG ODT TAB PO SCH (10:12)
[2023-07-05] MEDS: Cyclobenzaprine 10 MG TAB PO PRN (10:26)
[2023-07-05 11:11] VITALS: BMI 48.6
[2023-07-05] MEDS: Montelukast Sodium 10 mg Tablet PO SCH (20:29)
[2023-07-06] MEDS: Albumin 25% 25 GM/100 ML BOT IVPB SCH ×4 (01:09→18:11)
[2023-07-06] MEDS: HYDROcodone/Acetaminophen 5/325 mg Tablet PO PRN ×4 (01:09→21:43)
[2023-07-06 04:03] LABS: #Monocytes 1.2 thou/uL (0.11-0.59); #Neutrophils 13.7 thou/uL (1.40-6.50); %Basophils 0.2 % (0.0-1.0); %Eosinophils 0.1 % (0.0-10.0); %Lymphocytes 8.1 % (21.0-51.0); %Monocytes 7.3 % (0.0-10.0); %Neutrophils 82.6 % (42.0-75.0); Hematocrit 29.1 % (36.0-47.0); Hemoglobin 10.2 g/dL (12.0-16.0); Mean Corpuscular HGB CONC 35.1 g/dL (32.0-36.0); Mean Corpuscular Hemoglobin 39.8 pg (27.0-31.0); Mean Corpuscular Volume 113.7 fl (78.0-98.0); Mean Platelet Volume 9.9 fL (7.4-10.4); Platelet Count 136 10x3/uL (130-400); RBC Distribution Width 18.8 % (11.5-14.5); Red Blood Cell (RBC) Count 2.56 mill/uL (4.20-5.40); White Blood Cell (WBC) Count 16.6 10x3/uL (4.8-10.8)
[2023-07-06 04:41] LABS: ALT (SGPT) 63 U/L (8-55); AST (SGOT) 114 U/L (5-34); Albumin 2.2 g/dL (3.5-5.0); Alkaline Phosphatase 234 U/L (40-110); Anion Gap 12 mmol/L (10-20); BUN (Urea Nitrogen) 28 mg/dL (7.0-18.7); Bilirubin, Total 15.3 mg/dL (0.2-1.2); Calc. Creatinine Clearance 244 mL/min (70-130); Calcium 8.2 mg/dL (7.8-10.44); Carbon Dioxide 22 mmol/L (22-29); Chloride 97 mmol/L (98-107); Estimated GFR 113; Globulin 2.9 g/dL (2.4-3.5); Glucose 99 mg/dL (70-105); Magnesium 2.1 mg/dL (1.6-2.6); Potassium 4.6 mmol/L (3.5-5.1); Protein, Total 5.1 g/dL (6.0-8.3); Sodium 126 mmol/L (136-145)
[2023-07-06] MEDS: Piperacillin/Tazobactam 3.375 GM in Sodium Chloride 0.9% 100 ML IVPB SCH (06:28)
[2023-07-06] MEDS: Gabapentin 300 MG CAP PO SCH ×3 (08:32→21:47)
[2023-07-06] MEDS: Furosemide 40 MG/4 ML VIAL SLOW IVP SCH ×2 (08:32→10:09)
[2023-07-06] MEDS: Carvedilol 6.25 MG TAB PO SCH ×3 (08:32→21:43)
[2023-07-06] MEDS: Senokot S 8.6-50 MG TAB PO SCH ×2 (08:33→21:47)
[2023-07-06] MEDS: prednisoLONE 10 MG ODT TAB PO SCH (10:07)
[2023-07-06] MEDS ORDERED: Spironolactone 100 MG TAB PO SCH (12:00)
[2023-07-06] MEDS: Montelukast Sodium 10 mg Tablet PO SCH (21:48)
[2023-07-07] MEDS: Cyclobenzaprine 10 MG TAB PO PRN (02:17)
[2023-07-07 06:25] LABS: #Monocytes 1.6 thou/uL (0.11-0.59); #Neutrophils 14.4 thou/uL (1.40-6.50); %Basophils 0.2 % (0.0-1.0); %Eosinophils 0.2 % (0.0-10.0); %Lymphocytes 8.9 % (21.0-51.0); %Monocytes 9.1 % (0.0-10.0); %Neutrophils 80.3 % (42.0-75.0); Mean Corpuscular HGB CONC 34.5 g/dL (32.0-36.0); Mean Corpuscular Hemoglobin 39.5 pg (27.0-31.0); Mean Corpuscular Volume 114.6 fl (78.0-98.0); Mean Platelet Volume 9.9 fL (7.4-10.4); Platelet Count 150 10x3/uL (130-400); RBC Distribution Width 19.1 % (11.5-14.5); Red Blood Cell (RBC) Count 2.53 mill/uL (4.20-5.40)
[2023-07-07] MEDS: HYDROcodone/Acetaminophen 5/325 mg Tablet PO PRN ×2 (06:53→21:23)
[2023-07-07 06:54] LABS: ALT (SGPT) 63 U/L (8-55); AST (SGOT) 111 U/L (5-34); Albumin 2.8 g/dL (3.5-5.0); Alkaline Phosphatase 221 U/L (40-110); Anion Gap 12 mmol/L (10-20); BUN (Urea Nitrogen) 23 mg/dL (7.0-18.7); Bilirubin, Total 13.8 mg/dL (0.2-1.2); Calc. Creatinine Clearance 275 mL/min (70-130); Calcium 8.6 mg/dL (7.8-10.44); Carbon Dioxide 21 mmol/L (22-29); Chloride 102 mmol/L (98-107); Delete Auto Diff?? NO; Estimated GFR 118; Globulin 2.7 g/dL (2.4-3.5); Glucose 93 mg/dL (70-105); Potassium 4.7 mmol/L (3.5-5.1); Protein, Total 5.5 g/dL (6.0-8.3); Sodium 130 mmol/L (136-145)
[2023-07-07] MEDS: Gabapentin 300 MG CAP PO SCH ×3 (09:53→21:24)
[2023-07-07] MEDS: Carvedilol 6.25 MG TAB PO SCH ×2 (09:53→21:24)
[2023-07-07] MEDS: Spironolactone 100 MG TAB PO SCH (09:53)
[2023-07-07] MEDS: Furosemide 40 MG TAB PO SCH (09:53)
[2023-07-07] MEDS: prednisoLONE 10 MG ODT TAB PO SCH (09:54)
[2023-07-07] MEDS: Senokot S 8.6-50 MG TAB PO SCH ×2 (09:54→21:25)
[2023-07-07 12:25] LABS: Anisocytosis SLIGHT = 6-15 cells (100X) (0-5/hpf); Macrocytosis MODERATE=16-30 cells (100X) (0-5/hpf); Platelet Adequacy Comment Platelets Normal; Polychromasia SLIGHT = 2-3 cells (100X) (0-2/hpf); RBC Morph Comment Within Normal Limits; Target Cells SLIGHT = 2-5 cells (100X) (0-1/hpf)
[2023-07-07] MEDS: Morphine 2 MG/ML VIAL SLOW IVP PRN (17:24)
[2023-07-07] MEDS: Montelukast Sodium 10 mg Tablet PO SCH (21:23)
[2023-07-08] MEDS: Cyclobenzaprine 10 MG TAB PO PRN (00:43)
[2023-07-08] MEDS: HYDROcodone/Acetaminophen 5/325 mg Tablet PO PRN ×4 (02:47→22:19)
[2023-07-08] MEDS: Carvedilol 6.25 MG TAB PO SCH ×2 (08:19→20:05)
[2023-07-08] MEDS: Gabapentin 300 MG CAP PO SCH ×3 (08:19→20:04)
[2023-07-08] MEDS: Spironolactone 100 MG TAB PO SCH (08:20)
[2023-07-08] MEDS: Senokot S 8.6-50 MG TAB PO SCH ×2 (08:20→20:05)
[2023-07-08] MEDS: Furosemide 40 MG TAB PO SCH (08:20)
[2023-07-08] MEDS: prednisoLONE 10 MG ODT TAB PO SCH (08:20)
[2023-07-08 10:08] LABS: #Eosinphils 0.1 thou/uL (0.0-0.7); #Monocytes 1.1 thou/uL (0.11-0.59); #Neutrophils 12.4 thou/uL (1.40-6.50); %Basophils 0.3 % (0.0-1.0); %Eosinophils 0.5 % (0.0-10.0); %Monocytes 7.3 % (0.0-10.0); %Neutrophils 79.7 % (42.0-75.0); Hematocrit 29.2 % (36.0-47.0); Hemoglobin 10.1 g/dL (12.0-16.0); Mean Corpuscular HGB CONC 34.6 g/dL (32.0-36.0); Mean Corpuscular Hemoglobin 40.6 pg (27.0-31.0); Mean Corpuscular Volume 117.3 fl (78.0-98.0); Mean Platelet Volume 9.8 fL (7.4-10.4); Platelet Count 132 10x3/uL (130-400); RBC Distribution Width 19.2 % (11.5-14.5); Red Blood Cell (RBC) Count 2.49 mill/uL (4.20-5.40); White Blood Cell (WBC) Count 15.5 10x3/uL (4.8-10.8)
[2023-07-08 10:38] LABS: ALT (SGPT) 67 U/L (8-55); AST (SGOT) 131 U/L (5-34); Albumin 2.4 g/dL (3.5-5.0); Alkaline Phosphatase 233 U/L (40-110); Anion Gap 10 mmol/L (10-20); BUN (Urea Nitrogen) 21 mg/dL (7.0-18.7); Bilirubin, Total 11.7 mg/dL (0.2-1.2); Calc. Creatinine Clearance 262 mL/min (70-130); Calcium 8.4 mg/dL (7.8-10.44); Carbon Dioxide 25 mmol/L (22-29); Chloride 100 mmol/L (98-107); Estimated GFR 117; Globulin 2.6 g/dL (2.4-3.5); Glucose 107 mg/dL (70-105); Magnesium 1.8 mg/dL (1.6-2.6); Potassium 4.2 mmol/L (3.5-5.1); Sodium 131 mmol/L (136-145)
[2023-07-08 11:17] LABS: Anisocytosis SLIGHT = 6-15 cells (100X) (0-5/hpf); Hypochromia SLIGHT = 6-15 cells (100X) (0-5/hpf); Macrocytosis MODERATE=16-30 cells (100X) (0-5/hpf)
[2023-07-08 11:18] LABS: Platelet Adequacy Comment Appears Adequate
[2023-07-08] MEDS: Morphine 2 MG/ML VIAL SLOW IVP PRN ×2 (12:36→20:05)
[2023-07-08] MEDS ORDERED: Witch Hazel-Glycerin 1 EACH JAR TOP PRN (15:27)
[2023-07-08] MEDS ORDERED: Furosemide 40 MG/4 ML VIAL SLOW IVP SCH (15:30)
[2023-07-08] MEDS: Mometasone/Formoterol 200/5 60 PUFF INH SCH (18:18)
[2023-07-08] MEDS: Montelukast Sodium 10 mg Tablet PO SCH (20:05)
[2023-07-09] MEDS: Cyclobenzaprine 10 MG TAB PO PRN ×3 (00:18→18:04)
[2023-07-09] MEDS: Morphine 2 MG/ML VIAL SLOW IVP PRN ×6 (00:20→22:23)
[2023-07-09 04:48] LABS: #Eosinphils 0.1 thou/uL (0.0-0.7); #Monocytes 1.2 thou/uL (0.11-0.59); #Neutrophils 13.4 thou/uL (1.40-6.50); %Basophils 0.2 % (0.0-1.0); %Eosinophils 0.4 % (0.0-10.0); %Lymphocytes 9.6 % (21.0-51.0); %Monocytes 7.5 % (0.0-10.0); %Neutrophils 81.1 % (42.0-75.0); Hematocrit 29.1 % (36.0-47.0); Mean Corpuscular HGB CONC 34.4 g/dL (32.0-36.0); Mean Corpuscular Hemoglobin 40.3 pg (27.0-31.0); Mean Corpuscular Volume 117.3 fl (78.0-98.0); Mean Platelet Volume 9.9 fL (7.4-10.4); Platelet Count 137 10x3/uL (130-400); RBC Distribution Width 19.3 % (11.5-14.5); Red Blood Cell (RBC) Count 2.48 mill/uL (4.20-5.40); White Blood Cell (WBC) Count 16.5 10x3/uL (4.8-10.8)
[2023-07-09 05:06] LABS: ALT (SGPT) 71 U/L (8-55); AST (SGOT) 120 U/L (5-34); Albumin 2.5 g/dL (3.5-5.0); Alkaline Phosphatase 236 U/L (40-110); Anion Gap 7 mmol/L (10-20); BUN (Urea Nitrogen) 21 mg/dL (7.0-18.7); Bilirubin, Total 10.5 mg/dL (0.2-1.2); Calc. Creatinine Clearance 255 mL/min (70-130); Calcium 8.6 mg/dL (7.8-10.44); Carbon Dioxide 29 mmol/L (22-29); Chloride 100 mmol/L (98-107); Estimated GFR 116; Globulin 2.6 g/dL (2.4-3.5); Glucose 93 mg/dL (70-105); Magnesium 1.9 mg/dL (1.6-2.6); Potassium 4.3 mmol/L (3.5-5.1); Protein, Total 5.1 g/dL (6.0-8.3); Sodium 132 mmol/L (136-145)
[2023-07-09 05:11] LABS: Delete Auto Diff?? NO
[2023-07-09] MEDS: Furosemide 40 MG/4 ML VIAL SLOW IVP SCH ×2 (05:26→14:35)
[2023-07-09] MEDS: HYDROcodone/Acetaminophen 5/325 mg Tablet PO PRN ×3 (05:29→20:18)
[2023-07-09] MEDS: Mometasone/Formoterol 200/5 60 PUFF INH SCH ×2 (08:00→18:18)
[2023-07-09] MEDS: prednisoLONE 10 MG ODT TAB PO SCH (10:32)
[2023-07-09] MEDS: Gabapentin 300 MG CAP PO SCH ×3 (10:33→20:17)
[2023-07-09] MEDS: Carvedilol 6.25 MG TAB PO SCH ×2 (10:33→20:17)
[2023-07-09] MEDS: Spironolactone 100 MG TAB PO SCH (10:34)
[2023-07-09] MEDS: Senokot S 8.6-50 MG TAB PO SCH ×2 (10:34→20:17)
[2023-07-09] MEDS: Montelukast Sodium 10 mg Tablet PO SCH (20:17)
[2023-07-10] MEDS: Morphine 2 MG/ML VIAL SLOW IVP PRN ×5 (02:40→22:12)
[2023-07-10] MEDS: HYDROcodone/Acetaminophen 5/325 mg Tablet PO PRN ×3 (05:02→20:24)
[2023-07-10] MEDS: Furosemide 40 MG/4 ML VIAL SLOW IVP SCH ×2 (05:02→13:50)
[2023-07-10 05:07] LABS: #Eosinphils 0.1 thou/uL (0.0-0.7); #Monocytes 1.4 thou/uL (0.11-0.59); #Neutrophils 14.1 thou/uL (1.40-6.50); %Basophils 0.2 % (0.0-1.0); %Eosinophils 0.3 % (0.0-10.0); %Lymphocytes 7.9 % (21.0-51.0); %Neutrophils 82.1 % (42.0-75.0); Hematocrit 28.1 % (36.0-47.0); Hemoglobin 9.6 g/dL (12.0-16.0); Mean Corpuscular HGB CONC 34.2 g/dL (32.0-36.0); Mean Corpuscular Hemoglobin 40.3 pg (27.0-31.0); Mean Corpuscular Volume 118.1 fl (78.0-98.0); Mean Platelet Volume 10.1 fL (7.4-10.4); Platelet Count 123 10x3/uL (130-400); RBC Distribution Width 18.9 % (11.5-14.5); Red Blood Cell (RBC) Count 2.38 mill/uL (4.20-5.40); White Blood Cell (WBC) Count 17.2 10x3/uL (4.8-10.8)
[2023-07-10 05:53] LABS: Anisocytosis SLIGHT = 6-15 cells HPF (0-5); Burr Cells SLIGHT = 2-5 cells HPF (0-1); CellaVision Operator ID lab.abc; Macrocytosis MODERATE=16-30 cells HPF (0-5); Platelet Adequacy Comment Platelets Normal
[2023-07-10 06:30] LABS: ALT (SGPT) 77 U/L (8-55); AST (SGOT) 127 U/L (5-34); Albumin 2.5 g/dL (3.5-5.0); Alkaline Phosphatase 237 U/L (40-110); Anion Gap 10 mmol/L (10-20); BUN (Urea Nitrogen) 23 mg/dL (7.0-18.7); Bilirubin, Total 10.6 mg/dL (0.2-1.2); Calc. Creatinine Clearance 251 mL/min (70-130); Calcium 8.4 mg/dL (7.8-10.44); Carbon Dioxide 27 mmol/L (22-29); Cardiac Risk TEST NOT PERFORMED (Less than 4.5); Chloride 96 mmol/L (98-107); Cholesterol 136 mg/dl (< 200 Desired); Estimated GFR 115; Globulin 2.6 g/dL (2.4-3.5); Glucose 113 mg/dL (70-105); HDL Cholesterol Less than 8 mg/dL (>60 Neg Risk); Magnesium 1.9 mg/dL (1.6-2.6); Potassium 4.4 mmol/L (3.5-5.1); Protein, Total 5.1 g/dL (6.0-8.3); Sodium 129 mmol/L (136-145); Triglycerides 134 mg/dL (Less than 150)
[2023-07-10] MEDS: Mometasone/Formoterol 200/5 60 PUFF INH SCH ×2 (07:19→19:33)
[2023-07-10] MEDS: Multivit, Therapeutic 1 TAB PO SCH (08:24)
[2023-07-10] MEDS: Carvedilol 6.25 MG TAB PO SCH ×2 (08:24→20:24)
[2023-07-10] MEDS: Senokot S 8.6-50 MG TAB PO SCH ×2 (08:25→20:24)
[2023-07-10] MEDS: Gabapentin 300 MG CAP PO SCH ×3 (08:25→20:30)
[2023-07-10] MEDS: prednisoLONE 10 MG ODT TAB PO SCH (08:25)
[2023-07-10] MEDS: Spironolactone 100 MG TAB PO SCH (08:25)
[2023-07-10] MEDS: Cyclobenzaprine 10 MG TAB PO PRN ×2 (08:29→16:52)
[2023-07-10] MEDS: Montelukast Sodium 10 mg Tablet PO SCH (20:24)
[2023-07-11] MEDS: Morphine 2 MG/ML VIAL SLOW IVP PRN ×4 (02:48→20:32)
[2023-07-11] MEDS: HYDROcodone/Acetaminophen 5/325 mg Tablet PO PRN ×2 (04:31→11:37)
[2023-07-11] MEDS: Furosemide 40 MG/4 ML VIAL SLOW IVP SCH ×2 (06:01→14:08)
[2023-07-11] MEDS: Cyclobenzaprine 10 MG TAB PO PRN ×2 (06:01→14:08)
[2023-07-11 06:33] LABS: #Eosinphils 0.1 thou/uL (0.0-0.7); #Monocytes 1.7 thou/uL (0.11-0.59); #Neutrophils 16.9 thou/uL (1.40-6.50); %Basophils 0.2 % (0.0-1.0); %Eosinophils 0.4 % (0.0-10.0); %Lymphocytes 9.5 % (21.0-51.0); %Monocytes 8.2 % (0.0-10.0); %Neutrophils 80.1 % (42.0-75.0); Hemoglobin 9.7 g/dL (12.0-16.0); Mean Corpuscular HGB CONC 34.6 g/dL (32.0-36.0); Mean Corpuscular Hemoglobin 40.9 pg (27.0-31.0); Mean Corpuscular Volume 118.1 fl (78.0-98.0); Mean Platelet Volume 9.9 fL (7.4-10.4); Platelet Count 121 10x3/uL (130-400); RBC Distribution Width 18.9 % (11.5-14.5); Red Blood Cell (RBC) Count 2.37 mill/uL (4.20-5.40); White Blood Cell (WBC) Count 21.2 10x3/uL (4.8-10.8)
[2023-07-11 06:59] LABS: ALT (SGPT) 78 U/L (8-55); AST (SGOT) 129 U/L (5-34); Albumin 2.3 g/dL (3.5-5.0); Alkaline Phosphatase 281 U/L (40-110); Anion Gap 11 mmol/L (10-20); BUN (Urea Nitrogen) 25 mg/dL (7.0-18.7); Bilirubin, Total 9.2 mg/dL (0.2-1.2); Calc. Creatinine Clearance 266 mL/min (70-130); Calcium 8.3 mg/dL (7.8-10.44); Carbon Dioxide 25 mmol/L (22-29); Chloride 96 mmol/L (98-107); Estimated GFR 117; Globulin 2.7 g/dL (2.4-3.5); Glucose 97 mg/dL (70-105); Potassium 4.4 mmol/L (3.5-5.1); Sodium 128 mmol/L (136-145)
[2023-07-11] MEDS: Mometasone/Formoterol 200/5 60 PUFF INH SCH ×2 (07:01→18:07)
[2023-07-11 07:14] LABS: Anisocytosis SLIGHT = 6-15 cells HPF (0-5); CellaVision Operator ID LAB.KB; Macrocytosis MODERATE=16-30 cells HPF (0-5); Platelet Adequacy Comment Platelets Decreased; Poikilocytosis SLIGHT = 6-15 cells HPF (0-5); Polychromasia SLIGHT = 2-3 cells HPF (0-2); Target Cells SLIGHT = 2-5 cells HPF (0-1)
[2023-07-11] MEDS: Spironolactone 100 MG TAB PO SCH (08:40)
[2023-07-11] MEDS: Gabapentin 300 MG CAP PO SCH ×3 (08:40→20:31)
[2023-07-11] MEDS: Multivit, Therapeutic 1 TAB PO SCH (08:41)
[2023-07-11] MEDS: Carvedilol 6.25 MG TAB PO SCH ×2 (08:41→20:31)
[2023-07-11] MEDS: prednisoLONE 10 MG ODT TAB PO SCH (08:41)
[2023-07-11] MEDS: Senokot S 8.6-50 MG TAB PO SCH ×2 (08:41→20:32)
[2023-07-11] MEDS: Montelukast Sodium 10 mg Tablet PO SCH (20:31)
[2023-07-12] MEDS: HYDROcodone/Acetaminophen 5/325 mg Tablet PO PRN ×2 (03:23→21:00)
[2023-07-12] MEDS: Furosemide 40 MG/4 ML VIAL SLOW IVP SCH ×2 (05:59→14:18)
[2023-07-12] MEDS: Mometasone/Formoterol 200/5 60 PUFF INH SCH ×2 (07:17→19:53)
[2023-07-12 07:39] LABS: #Eosinphils 0.1 thou/uL (0.0-0.7); #Monocytes 1.4 thou/uL (0.11-0.59); #Neutrophils 12.6 thou/uL (1.40-6.50); %Basophils 0.2 % (0.0-1.0); %Eosinophils 0.4 % (0.0-10.0); %Lymphocytes 10.5 % (21.0-51.0); %Neutrophils 78.8 % (42.0-75.0); Hemoglobin 9.5 g/dL (12.0-16.0); Mean Corpuscular HGB CONC 33.9 g/dL (32.0-36.0); Mean Corpuscular Hemoglobin 40.6 pg (27.0-31.0); Mean Corpuscular Volume 119.7 fl (78.0-98.0); Mean Platelet Volume 9.7 fL (7.4-10.4); Platelet Count 129 10x3/uL (130-400); RBC Distribution Width 19.1 % (11.5-14.5); Red Blood Cell (RBC) Count 2.34 mill/uL (4.20-5.40); White Blood Cell (WBC) Count 15.9 10x3/uL (4.8-10.8)
[2023-07-12 08:04] LABS: ALT (SGPT) 75 U/L (8-55); AST (SGOT) 118 U/L (5-34); Albumin 2.3 g/dL (3.5-5.0); Alkaline Phosphatase 231 U/L (40-110); Anion Gap 12 mmol/L (10-20); BUN (Urea Nitrogen) 26 mg/dL (7.0-18.7); Bilirubin, Total 9.1 mg/dL (0.2-1.2); Calc. Creatinine Clearance 275 mL/min (70-130); Calcium 8.1 mg/dL (7.8-10.44); Carbon Dioxide 26 mmol/L (22-29); Chloride 105 mmol/L (98-107); Estimated GFR 118; Globulin 2.6 g/dL (2.4-3.5); Glucose 108 mg/dL (70-105); Potassium 3.5 mmol/L (3.5-5.1); Protein, Total 4.9 g/dL (6.0-8.3); Sodium 139 mmol/L (136-145)
[2023-07-12 08:38] LABS: Burr Cells SLIGHT = 2-5 cells HPF (0-1); CellaVision Operator ID LAB.KB; Macrocytosis MARKED = >30 cells HPF (0-5); Platelet Adequacy Comment Platelets Decreased; Polychromasia SLIGHT = 2-3 cells HPF (0-2)
[2023-07-12] MEDS: Gabapentin 300 MG CAP PO SCH ×3 (09:15→20:59)
[2023-07-12] MEDS: Spironolactone 100 MG TAB PO SCH (09:16)
[2023-07-12] MEDS: Senokot S 8.6-50 MG TAB PO SCH ×2 (09:16→20:58)
[2023-07-12] MEDS: Carvedilol 6.25 MG TAB PO SCH ×2 (09:16→20:57)
[2023-07-12] MEDS: Multivit, Therapeutic 1 TAB PO SCH (09:16)
[2023-07-12] MEDS: Morphine 2 MG/ML VIAL SLOW IVP PRN ×2 (09:20→14:18)
[2023-07-12] MEDS: prednisoLONE 10 MG ODT TAB PO SCH (10:11)
[2023-07-12] MEDS: Montelukast Sodium 10 mg Tablet PO SCH (21:00)
[2023-07-12] MEDS: Cyclobenzaprine 10 MG TAB PO PRN (21:00)
[2023-07-13] MEDS: Morphine 2 MG/ML VIAL SLOW IVP PRN (00:29)
[2023-07-13] MEDS: HYDROcodone/Acetaminophen 5/325 mg Tablet PO PRN ×2 (02:27→14:37)
[2023-07-13] MEDS: Furosemide 40 MG/4 ML VIAL SLOW IVP SCH ×2 (06:13→14:37)
[2023-07-13] MEDS: Mometasone/Formoterol 200/5 60 PUFF INH SCH ×2 (07:08→18:23)
[2023-07-13 07:28] VITALS: TEMP 98.4
[2023-07-13 08:19] LABS: #Eosinphils 0.1 thou/uL (0.0-0.7); #Monocytes 1.1 thou/uL (0.11-0.59); #Neutrophils 14.1 thou/uL (1.40-6.50); %Basophils 0.1 % (0.0-1.0); %Eosinophils 0.5 % (0.0-10.0); %Lymphocytes 9.5 % (21.0-51.0); %Monocytes 6.2 % (0.0-10.0); %Neutrophils 82.6 % (42.0-75.0); Hematocrit 26.9 % (36.0-47.0); Mean Corpuscular HGB CONC 33.5 g/dL (32.0-36.0); Mean Corpuscular Hemoglobin 40.4 pg (27.0-31.0); Mean Corpuscular Volume 120.6 fl (78.0-98.0); Mean Platelet Volume 9.7 fL (7.4-10.4); Platelet Count 138 10x3/uL (130-400); RBC Distribution Width 19.1 % (11.5-14.5); Red Blood Cell (RBC) Count 2.23 mill/uL (4.20-5.40); White Blood Cell (WBC) Count 17.1 10x3/uL (4.8-10.8)
[2023-07-13 08:55] LABS: ALT (SGPT) 81 U/L (8-55); AST (SGOT) 122 U/L (5-34); Albumin 2.4 g/dL (3.5-5.0); Alkaline Phosphatase 259 U/L (40-110); Anion Gap 14 mmol/L (10-20); BUN (Urea Nitrogen) 26 mg/dL (7.0-18.7); Bilirubin, Total 8.7 mg/dL (0.2-1.2); Calc. Creatinine Clearance 284 mL/min (70-130); Calcium 8.4 mg/dL (7.8-10.44); Carbon Dioxide 24 mmol/L (22-29); Chloride 101 mmol/L (98-107); Estimated GFR 119; Globulin 2.9 g/dL (2.4-3.5); Glucose 160 mg/dL (70-105); Protein, Total 5.3 g/dL (6.0-8.3); Sodium 135 mmol/L (136-145)
[2023-07-13] MEDS: Gabapentin 300 MG CAP PO SCH ×2 (09:22→14:37)
[2023-07-13] MEDS: Spironolactone 100 MG TAB PO SCH (09:23)
[2023-07-13] MEDS: Multivit, Therapeutic 1 TAB PO SCH (09:23)
[2023-07-13] MEDS: Senokot S 8.6-50 MG TAB PO SCH (09:23)
[2023-07-13] MEDS: Carvedilol 6.25 MG TAB PO SCH (09:23)
[2023-07-13] MEDS: prednisoLONE 10 MG ODT TAB PO SCH (09:35)
[2023-07-13 09:39] VITALS: BP 124/75
[2023-07-13 09:57] LABS: CellaVision Operator ID LAB.GE; Platelet Adequacy Comment Platelets Normal; Polychromasia SLIGHT = 2-3 cells HPF (0-2)
[2023-07-13] MEDS ORDERED: Morphine 2 MG/ML VIAL SLOW IVP PRN (14:00)
== END 2023-07-13 18:40 | disposition home or self-care (01) | DRG 432 ==
LOC: ERS 08:34 → OBSVTOIN 12:46 → ERHOLD 12:46 → IMCU/EMU 14:19 → 2NO 07-04 16:47 → T4-A 07-11 17:50
PROVIDERS: ADMIT Family Medicine; ATTEND Internal Medicine
PROC: 30233J1 Transfusion of Nonautologous Serum Albumin into Peripheral Vein, Percutaneous Approach (ICD-10-PCS; principal; 2023-07-05)
PROC: 0W9G3ZZ Drainage of Peritoneal Cavity, Percutaneous Approach (ICD-10-PCS; 2023-07-05)
DX: K70.31 Alcoholic cirrhosis of liver with ascites (principal); K85.20 Alcohol induced acute pancreatitis without necrosis or infection; I42.0 Dilated cardiomyopathy; I50.22 Chronic systolic (congestive) heart failure; K92.2 Gastrointestinal hemorrhage, unspecified; E87.1 Hypo-osmolality and hyponatremia; Z68.42 Body mass index [BMI] 45.0-49.9, adult; D68.9 Coagulation defect, unspecified; K70.11 Alcoholic hepatitis with ascites; I11.0 Hypertensive heart disease with heart failure; K21.9 Gastro-esophageal reflux disease without esophagitis; J45.909 Unspecified asthma, uncomplicated; K76.0 Fatty (change of) liver, not elsewhere classified; F12.90 Cannabis use, unspecified, uncomplicated; F41.0 Panic disorder [episodic paroxysmal anxiety]; R26.81 Unsteadiness on feet; Z91.013 Allergy to seafood; E87.70 Fluid overload, unspecified; F10.20 Alcohol dependence, uncomplicated; E80.6 Other disorders of bilirubin metabolism; E53.9 Vitamin B deficiency, unspecified; E66.01 Morbid (severe) obesity due to excess calories; E88.09 Other disorders of plasma-protein metabolism, not elsewhere classified; K59.00 Constipation, unspecified; M54.30 Sciatica, unspecified side; R53.81 Other malaise; K64.4 Residual hemorrhoidal skin tags; Z98.890 Other specified postprocedural states; Z88.8 Allergy status to other drugs, medicaments and biological substances; Z79.899 Other long term (current) drug therapy; Z90.49 Acquired absence of other specified parts of digestive tract; Z98.891 History of uterine scar from previous surgery; Z98.51 Tubal ligation status; D53.9 Nutritional anemia, unspecified
CPT/HCPCS: 36415; 49083; 71045; 71275; 74177; 76705; 80053; 80061; 80306; 80307; 81001; 82042; 82140; 82248; 82607; 83036; 83605; 83690; 83735; 83880; 84157; 84443; 84484; 84703; 85025; 85060; 85610; 85730; 86850; 86900; 86901; 87040; 87070; 87205; 88112; 88305; 89051; 93005; 93306; 94760; 96365; 96367; 96375; J1940; J2270; J2272; J2405; J2543; J3370-JW; J3490; P9047; Q9967

== ENCOUNTER 2023-12-10 20:29 | Inpatient (IN) | payer OTHER ==
[2023-12-10 23:34] VITALS: BMI 38.7
[2023-12-11] MEDS ORDERED: Acetaminophen 325 MG TAB PO PRN (01:23)
[2023-12-11] MEDS ORDERED: Albuterol 200 PUFF (6.7GM INHALER) INH PRN (01:28)
[2023-12-11] MEDS ORDERED: Sodium Chloride 0.9% 1,000 ML IV SCH (01:45)
[2023-12-11] MEDS ORDERED: Pantoprazole 40 MG VIAL IVP SCH (01:45)
[2023-12-11 03:00] LABS: #Monocytes 0.5 thou/uL (0.11-0.59); #Neutrophils 2.1 thou/uL (1.40-6.50); %Basophils 0.9 % (0.0-1.0); %Eosinophils 0.9 % (0.0-10.0); %Lymphocytes 23.4 % (21.0-51.0); %Monocytes 14.3 % (0.0-10.0); %Neutrophils 60.2 % (42.0-75.0); Hematocrit 26.7 % (36.0-47.0); Hemoglobin 8.5 g/dL (12.0-16.0); Mean Corpuscular HGB CONC 31.8 g/dL (32.0-36.0); Mean Corpuscular Hemoglobin 30.1 pg (27.0-31.0); Mean Corpuscular Volume 94.7 fl (78.0-98.0); Mean Platelet Volume 11.7 fL (7.4-10.4); Red Blood Cell (RBC) Count 2.82 mill/uL (4.20-5.40); White Blood Cell (WBC) Count 3.4 10x3/uL (4.8-10.8)
[2023-12-11 03:03] LABS: Platelet Count 38 10x3/uL (130-400)
[2023-12-11 03:50] LABS: ALT (SGPT) 23 U/L (8-55); AST (SGOT) 94 U/L (5-34); Albumin 2.7 g/dL (3.5-5.0); Alkaline Phosphatase 118 U/L (40-110); Anion Gap 13 mmol/L (10-20); BUN (Urea Nitrogen) 4 mg/dL (7.0-18.7); Bilirubin, Total 3.3 mg/dL (0.2-1.2); Calc. Creatinine Clearance 244 mL/min (70-130); Calcium 7.8 mg/dL (7.8-10.44); Carbon Dioxide 22 mmol/L (22-29); Chloride 107 mmol/L (98-107); Estimated GFR 120; Globulin 3.6 g/dL (2.4-3.5); Glucose 124 mg/dL (70-105); Iron 60 ug/dL (50-170); Iron Binding Capacity, Total 261 mcg/dL (265-497); Magnesium 2.1 mg/dL (1.6-2.6); Phosphorus 2.3 mg/dL (2.3-4.7); Protein, Total 6.3 g/dL (6.0-8.3); Sodium 139 mmol/L (136-145)
[2023-12-11 03:59] LABS: Ferritin 34.63 ng/mL (10-291)
[2023-12-11 04:05] LABS: Vitamin B12 456 pg/mL (211-911)
[2023-12-11 04:42] LABS: Thyroid Stimulating Hormone 0.5366 uIU/mL (0.35-4.94)
[2023-12-11 04:54] LABS: HIV (1/2) Antibody/Antigen Non-Reactive (NonReactive); HIV 1/2 INDEX 0.23 S/CO (<1.00)
[2023-12-11] MEDS: Mometasone 100 MCG HFA INHALER (RT USE) INH SCH ×2 (06:58→19:10)
[2023-12-11 07:32] LABS: Hematocrit 27.7 % (36.0-47.0)
[2023-12-11] MEDS: HYDROcodone/Acetaminophen 5/325 mg Tablet PO PRN ×3 (07:57→21:42)
[2023-12-11] MEDS ORDERED: prednisoLONE 10 MG ODT TAB PO SCH ×2 (08:00)
[2023-12-11] MEDS ORDERED: Ondansetron ODT 4 MG TAB PO PRN (08:59)
[2023-12-11] MEDS ORDERED: Potassium Chloride 20 MEQ TAB PO SCH (09:00)
[2023-12-11] MEDS ORDERED: predniSONE 20 MG TAB PO SCH (10:45)
[2023-12-11] MEDS ORDERED: Ondansetron PF 4 MG/2 ML Vial IVP SCH ×2 (11:30→15:30)
[2023-12-11] MEDS ORDERED: Potassium Bicarbonate/Cit Ac 20 MEQ TAB PO SCH (11:45)
[2023-12-11] MEDS: Carvedilol 6.25 MG TAB PO SCH ×2 (12:17→17:49)
[2023-12-11] MEDS: Spironolactone 25 MG TAB PO SCH ×2 (12:17→17:49)
[2023-12-11] MEDS: Furosemide 40 MG TAB PO SCH (12:22)
[2023-12-11] MEDS: Pantoprazole 40 MG VIAL IVP SCH ×2 (12:22→20:55)
[2023-12-11 13:31] LABS: Hematocrit 29.5 % (36.0-47.0); Hemoglobin 9.5 g/dL (12.0-16.0)
[2023-12-11] MEDS ORDERED: Iron, Sodium Ferric Gluconate 250 MG in Sodium Chloride 0.9% 250 ML 250 ML IVPB SCH (16:15)
[2023-12-11] MEDS: Potassium Bicarbonate/Cit Ac 20 MEQ TAB PO SCH (17:48)
[2023-12-11] MEDS ORDERED: Ondansetron PF 4 MG/2 ML Vial IVP PRN (18:57)
[2023-12-11 20:04] LABS: Hematocrit 26.9 % (36.0-47.0); Hemoglobin 8.8 g/dL (12.0-16.0)
[2023-12-12] MEDS: HYDROcodone/Acetaminophen 5/325 mg Tablet PO PRN ×2 (03:44→11:01)
[2023-12-12 05:17] LABS: #Monocytes 0.6 thou/uL (0.11-0.59); #Neutrophils 2.7 thou/uL (1.40-6.50); %Basophils 0.4 % (0.0-1.0); %Eosinophils 0.7 % (0.0-10.0); %Monocytes 12.7 % (0.0-10.0); %Neutrophils 58.8 % (42.0-75.0); Hematocrit 28.1 % (36.0-47.0); Hemoglobin 9.2 g/dL (12.0-16.0); Mean Corpuscular HGB CONC 32.7 g/dL (32.0-36.0); Mean Corpuscular Hemoglobin 30.8 pg (27.0-31.0); Mean Platelet Volume 11.4 fL (7.4-10.4); RBC Distribution Width 16.7 % (11.5-14.5); Red Blood Cell (RBC) Count 2.99 mill/uL (4.20-5.40); White Blood Cell (WBC) Count 4.6 10x3/uL (4.8-10.8)
[2023-12-12 05:25] LABS: Platelet Count 43 10x3/uL (130-400)
[2023-12-12 05:33] LABS: INR-International Normal Ratio 1.8; Prothrombin Time 21.1 sec (12.0-14.7)
[2023-12-12 05:54] LABS: ALT (SGPT) 22 U/L (8-55); AST (SGOT) 80 U/L (5-34); Albumin 2.8 g/dL (3.5-5.0); Alkaline Phosphatase 121 U/L (40-110); Anion Gap 9 mmol/L (10-20); BUN (Urea Nitrogen) 5 mg/dL (7.0-18.7); Bilirubin, Total 3.9 mg/dL (0.2-1.2); Calc. Creatinine Clearance 224 mL/min (70-130); Calcium 8.2 mg/dL (7.8-10.44); Carbon Dioxide 24 mmol/L (22-29); Chloride 102 mmol/L (98-107); Estimated GFR 118; Globulin 3.9 g/dL (2.4-3.5); Glucose 73 mg/dL (70-105); Potassium 3.2 mmol/L (3.5-5.1); Protein, Total 6.7 g/dL (6.0-8.3); Sodium 132 mmol/L (136-145)
[2023-12-12] MEDS ORDERED: Iron, Sodium Ferric Gluconate 250 MG in Sodium Chloride 0.9% 250 ML 250 ML IVPB SCH (06:00)
[2023-12-12] MEDS: Mometasone 100 MCG HFA INHALER (RT USE) INH SCH (07:16)
[2023-12-12] MEDS ORDERED: predniSONE 20 MG TAB PO SCH (08:00)
[2023-12-12] MEDS: Carvedilol 6.25 MG TAB PO SCH (09:11)
[2023-12-12] MEDS: Potassium Bicarbonate/Cit Ac 20 MEQ TAB PO SCH (09:11)
[2023-12-12] MEDS: Furosemide 40 MG TAB PO SCH (09:12)
[2023-12-12] MEDS: Pantoprazole 40 MG VIAL IVP SCH (09:12)
[2023-12-12] MEDS: Spironolactone 25 MG TAB PO SCH (09:12)
[2023-12-12 14:35] VITALS: BP 120/60; TEMP 98.8
== END 2023-12-12 16:25 | disposition home or self-care (01) | DRG 433 ==
LOC: 2SW 23:21 → OBSVTOIN 12-11 01:23
PROVIDERS: ADMIT Family Medicine; ATTEND Family Medicine
DX: K70.30 Alcoholic cirrhosis of liver without ascites (principal); D61.818 Other pancytopenia; I42.0 Dilated cardiomyopathy; I50.22 Chronic systolic (congestive) heart failure; K76.6 Portal hypertension; K21.9 Gastro-esophageal reflux disease without esophagitis; E87.6 Hypokalemia; E66.9 Obesity, unspecified; I11.0 Hypertensive heart disease with heart failure; Z88.8 Allergy status to other drugs, medicaments and biological substances; Z91.013 Allergy to seafood; Z79.51 Long term (current) use of inhaled steroids; Z79.899 Other long term (current) drug therapy; Z90.49 Acquired absence of other specified parts of digestive tract; Z98.890 Other specified postprocedural states; Z98.51 Tubal ligation status; Z68.38 Body mass index [BMI] 38.0-38.9, adult
CPT/HCPCS: 36415; 76705; 80053; 82105; 82180; 82607; 82728; 83540; 83550; 83615; 83735; 84100; 84207; 84425; 84443; 85025; 85046; 85610; 87389; C9113; J2405; J2916; J7050; J7512; Q0162